=== PATIENT | male | born 1975 | race Caucasian/White ===

== ENCOUNTER 2020-07-14 15:45 | Emergency (ER) | payer OTHER ==
[2020-07-14 16:27] VITALS: BP 112/68; PULSE 72; TEMP 98.6; BMI 25.8
== END 2020-07-14 17:25 | disposition home or self-care (01) ==
LOC: FER 15:45
DX: Z11.59 Encounter for screening for other viral diseases (principal)
CPT/HCPCS: 71045-TC-FY; 99283-25

== ENCOUNTER 2022-06-12 17:37 | Emergency (ER) | payer OTHER ==
[2022-06-12 18:04] VITALS: BP 118/70; PULSE 68; RESP 18; TEMP 97.9; BMI 27.3
[2022-06-12] MEDS ORDERED: KETOROLAC TROMETHAMINE 30 MG/1 ML VIAL IM ONE (19:44)
[2022-06-12] MEDS ORDERED: LIDOCAINE 5% TOPICAL PATCH TP ONE (19:44)
[2022-06-12] MEDS ORDERED: LIDOCAINE 5% TOPICAL PATCH ONE (20:55)
[2022-06-12] MEDS ORDERED: KETOROLAC TROMETHAMINE 30 MG/1 ML VIAL ONE (20:55)
== END 2022-06-12 22:43 | disposition home or self-care (01) ==
LOC: JERFT 17:37
DX: M54.6 Pain in thoracic spine (principal)
CPT/HCPCS: 0241U-QW; 99283-25

== ENCOUNTER 2023-03-25 20:48 | Emergency (ER) | payer OTHER ==
[2023-03-25 21:11] VITALS: BP 119/75; PULSE 87; RESP 18; TEMP 97.8; BMI 27.3
[2023-03-25] MEDS ORDERED: LIDOCAINE HCL 2% (20ML MULTI-DOSE VIAL) ONE (21:53)
[2023-03-25] MEDS ORDERED: CEPHALEXIN MONOHYDRATE 250 MG CAPSULE (FP) PO ONE (22:35)
[2023-03-25] MEDS ORDERED: CEPHALEXIN MONOHYDRATE 500 MG CAPSULE (UD) ONE (22:38)
[2023-03-25] MEDS ORDERED: CEPHALEXIN MONOHYDRATE 250 MG CAPSULE (FP) ONE (22:38)
== END 2023-03-25 22:43 | disposition home or self-care (01) ==
LOC: FER 20:48
PROC: 0HQGXZZ Repair Left Hand Skin, External Approach (ICD-10-PCS; principal; 2023-03-25)
DX: S61.012A Laceration without foreign body of left thumb without damage to nail, initial encounter (principal); W26.8XXA Contact with other sharp object(s), not elsewhere classified, initial encounter; Y99.0 Civilian activity done for income or pay
CPT/HCPCS: 99283-25

== ENCOUNTER 2023-04-03 21:22 | Emergency (ER) | payer OTHER ==
[2023-04-03 21:30] VITALS: BMI 27.3
[2023-04-03 21:44] VITALS: BP 113/69; PULSE 74; RESP 16; TEMP 98.2
== END 2023-04-03 21:47 | disposition home or self-care (01) ==
LOC: FER 21:22
DX: Z48.02 Encounter for removal of sutures (principal)
CPT/HCPCS: 99281-25

== ENCOUNTER 2023-05-31 05:17 | Day surgery (SDC) | payer OTHER ==
[2023-05-25 15:14] VITALS: BMI 27.3
[2023-05-31 11:49] VITALS: RESP 18
[2023-05-31 11:51] VITALS: BP 100/75; PULSE 57; TEMP 98
== END 2023-05-31 11:57 | disposition home or self-care (01) ==
LOC: JASU-ENDO 05:17
PROVIDERS: ATTEND Internal Medicine Gastroenterology
PROC: 0DB98ZX Excision of Duodenum, Via Natural or Artificial Opening Endoscopic, Diagnostic (ICD-10-PCS; 2023-05-31)
PROC: 0DB78ZX Excision of Stomach, Pylorus, Via Natural or Artificial Opening Endoscopic, Diagnostic (ICD-10-PCS; 2023-05-31)
PROC: 0DB68ZX Excision of Stomach, Via Natural or Artificial Opening Endoscopic, Diagnostic (ICD-10-PCS; 2023-05-31)
PROC: 0DB48ZX Excision of Esophagogastric Junction, Via Natural or Artificial Opening Endoscopic, Diagnostic (ICD-10-PCS; 2023-05-31)
PROC: 0DJD8ZZ Inspection of Lower Intestinal Tract, Via Natural or Artificial Opening Endoscopic (ICD-10-PCS; principal; 2023-05-31 11:00)
DX: Z12.11 Encounter for screening for malignant neoplasm of colon (principal); D12.8 Benign neoplasm of rectum; K21.00 Gastro-esophageal reflux disease with esophagitis, without bleeding; K29.50 Unspecified chronic gastritis without bleeding; K64.8 Other hemorrhoids; Z86.010 Personal history of colon polyps
CPT/HCPCS: 88305-TC; 88342-TC